=== PATIENT | female | born 1960 | race Caucasian/White ===

== ENCOUNTER 2022-02-05 06:44 | Day surgery (SDC) | payer BC ==
[2022-02-04 03:10] VITALS: BMI 30.4
[2022-02-05] MEDS ORDERED: PROPOFOL 40 ML ONE (08:37)
[2022-02-05] MEDS ORDERED: PROPOFOL 20 ML ONE (09:01)
== END 2022-02-05 09:43 | disposition home or self-care (01) ==
LOC: CSHSDC 06:44
PROVIDERS: ATTEND Internal Medicine Gastroenterology
PROC: 0DJD8ZZ Inspection of Lower Intestinal Tract, Via Natural or Artificial Opening Endoscopic (ICD-10-PCS; principal; 2022-02-05)
DX: Z12.11 Encounter for screening for malignant neoplasm of colon (principal); K64.8 Other hemorrhoids; Z86.010 Personal history of colon polyps
CPT/HCPCS: J2704